=== PATIENT | female | born 1975 | race Caucasian/White ===

== ENCOUNTER 2017-06-24 14:31 | Observation (INO) | payer OTHER ==
[2017-06-24] MEDS ORDERED: Sodium Chloride 0.9% 1,000 ML IV STA (14:57)
[2017-06-24 15:24] LABS: BASO # 0.1 K/uL (0.0-0.2); BASO % 2.1 % (0.0-2.0); EOS # 0.4 K/uL (0.0-0.7); EOS % 8.1 % (0.0-4.0); HEMOGLOBIN 13.3 g/dL (12.0-16.0); LYMPH # 1.9 K/uL (1.0-4.3); LYMPH % 37.5 % (20.0-40.0); MEAN CELL VOLUME 74.3 fl (81.0-99.0); MEAN CORPUSCULAR HEMOGLOBIN 25.3 pg (27.0-31.0); MEAN PLATELET VOLUME 8.7 fl (7.2-11.7); MONO # 0.6 K/uL (0.0-0.8); MONO % 11.7 % (0.0-10.0); NEUT # 2.1 K/uL (1.8-7.0); NEUT % 40.6 % (50.0-75.0); NRBC % 0.2 % (0.0-0.0); RBC 5.25 Mil/uL (3.80-5.20); RED CELL DISTRIBUTION WIDTH 17.6 % (11.5-14.5); WHITE BLOOD COUNT 5.1 K/uL (4.8-10.8)
[2017-06-24 15:34] LABS: ALB/GLOB RATIO 1.3 (1.0-2.1); ALBUMIN 4.6 g/dL (3.5-5.0); ALT/SGPT 33 U/L (9-52); AST/SGOT 23 U/L (14-36); BLOOD UREA NITROGEN 12 mg/dl (7-17); GFR AFRICAN-AMERICAN > 60; GFR NON-AFRICAN AMERICAN > 60; LIPASE 1030 U/L (23-300)
[2017-06-24 15:38] LABS: SQUAMOUS EPITHIAL 8 /hpf (0-5); URINE BACTERIA RARE (<OCC); URINE BILIRUBIN NEGATIVE (NEGATIVE); URINE BLOOD NEGATIVE (NEGATIVE); URINE CLARITY SLIGHTY-CLOUDY (Clear); URINE COLOR YELLOW (YELLOW); URINE GLUCOSE (UA) NEG (Normal); URINE LEUKOCYTE ESTERASE NEG Leu/uL (Negative); URINE PROTEIN NEGATIVE (NEGATIVE); URINE UROBILINOGEN 0.2-1.0 mg/dL (0.2-1.0)
--- NOTE | 2017-06-24 15:41 | ED PDOC ---
HPI: CCC, URI, Sore Throat Time Seen by Provider: 06/24/17 14:39 Chief Complaint (Nursing): Cough, Cold, Congestion Chief Complaint (Provider): Cough, congestion, vomiting History Per: Patient History/Exam Limitations: no limitations Have you had recent travel within the past 21 days to any of the following countries: [place], [place], [place] or [place]?: No Onset/Duration Of Symptoms: Days (x3) Current Symptoms Are (Timing): Still Present Associated Symptoms: Cough, Nasal Congestion, Vomiting. denies: Fever Additional Complaint(s): 42 year old female presented to ED with complaints of nonproductive cough, nasal congestion, and about 5 episodes per day of non bloody vomiting. Patient reports epigastric pain only after vomiting. She denies fever and indicates she has been taking dayquil and nyquil interchangeably. Denied SOB, CP, hemoptysis, hematemesis, sick contacts, previous abdominal surgeries, and recent travel. PCP: Marilin Lewis Past Medical History Reviewed: Historical Data, Nursing Documentation, Vital Signs Vital Signs: Last Vital Signs Temp 98.8 F 06/24/17 22:15 Pulse 64 06/24/17 22:15 Resp 16 06/24/17 22:15 BP 136/71 06/24/17 22:15 Pulse Ox 99 06/24/17 22:15 - Medical History PMH: No Chronic Diseases - Surgical History Surgical History: No Surg Hx - Family History Family History: States: No Known Family Hx - Social History Current smoker - smoking cessation education provided: Yes SMOKER/PACKS PER DAY:: 1 (x 20 years) Alcohol: Occasional Drugs: Denies - Allergies Allergies/Adverse Reactions: Allergies Allergy/AdvReac Type Severity Reaction Status Date / Time No Known Allergies Allergy Verified 10/23/13 19:21 Review of Systems ROS Statement: Except As Marked, All Systems Reviewed And Found Negative Constitutional: Negative for: Fever ENT: Positive for: Nose Congestion Cardiovascular: Negative for: Chest Pain Respiratory: Positive for: Cough (non productive). Negative for: Shortness of Breath, Hemoptysis Gastrointestinal: Positive for: Vomiting (x5 episodes per day). Negative for: Hematemesis Musculoskeletal: Positive for: Other (Epigastric pain after vomiting) Physical Exam - Reviewed Nursing Documentation Reviewed: Yes Vital Signs Reviewed: Yes - Physical Exam Appears: Positive for: Non-toxic, No Acute Distress (actively coughing) Head Exam: Positive for: ATRAUMATIC, NORMAL INSPECTION, NORMOCEPHALIC Skin: Positive for: Normal Color, Warm, Dry Eye Exam: Positive for: Normal appearance, EOMI, PERRL. Negative for: Scleral icterus Cardiovascular/Chest: Positive for: Regular Rate, Rhythm. Negative for: Murmur Respiratory: Positive for: Normal Breath Sounds. Negative for: Wheezing, Respiratory Distress Gastrointestinal/Abdominal: Positive for: Normal Exam, Soft. Negative for: Tenderness Back: Positive for: Normal Inspection. Negative for: L CVA Tenderness, R CVA Tenderness, Vertebral Tenderness Extremity: Positive for: Normal ROM (upper/lower) Neurologic/Psych: Positive for: Alert, Oriented. Negative for: Aphasia, Facial Droop - Laboratory Results Result Diagrams: 06/24/17 15:10 06/24/17 15:10 Urine POC: Negative - ECG O2 Sat by Pulse Oximetry: 99 (RA) Pulse Ox Interpretation: Normal Medical Decision Making Medical Decision Making: Initial Impression: nasal congestion, non productive cough, nonbloody vomiting Initial Plan: ED urine Chest X-ray Famotidine 20mg IV Sodium chloride 1000mL IV Ondansetron 4mg PO Urinalysis 1600 Lipase: 1030 Case d/w Dr. Neely who recommends abd US, LDH level, and GI consult. Pt. kept NPO. LR bolus x 1, abd US, LDH level, ETOH level ordered. Pt. informed of results. Reports no hx of pancreatitis. Pt. states she does not drink alcohol often. Reports that she drinks approximately 2-3 times a year and last time she drank alcohol was in March 2017. 16:14 Chest X-ray Impression: no active diseases 17:55 Ultrasound Impression: cholelithiasis. no sonographic evidence of acute cholecystitis. Intermediate mass right hepatic lobe. Elective followup recommended. 1840 Case d/w Dr. Durant, GI fellow covering for Dr. Ross, who recommends 23 hr observation, CT, and IV LR hydration at 200mls/hr. Also states pt. can be started on clear liquid diet. States since this is pt.'s 1st episode of pancreatitis she has a high likelihood of deterioration therefore she requires [address] abd/pelvis w/ PO and IV contrast, IV LR at 200mls/hr ordered. 1850 Case d/w Dr. Weeks and arrangements made for 23 hr observation. Scribe Attestation: Documented by Charles Dias acting as a scribe for Jaime Woodward Provider Scribe Attestation: All medical record entries made by the Scribe were at my direction and personally dictated by me. I have reviewed the chart and agree that the record accurately reflects my personal performance of the history, physical exam, medical decision making, and the department course for this patient. I have also personally directed, reviewed, and agree with the discharge instructions and disposition. Disposition - Clinical Impression Clinical Impression: Acute pancreatitis - Patient ED Disposition Is Patient to be Admitted: No - Disposition Disposition: Routine/Home Disposition Time: 18:50 Condition: STABLE
[2017-06-24] MEDS ORDERED: Lactated Ringer's 1,000 ML IV SCH (16:00)
--- NOTE | 2017-06-24 16:16 | RAD ---
HISTORY: cough COMPARISON: No prior. TECHNIQUE: Chest PA and lateral FINDINGS: LUNGS: No active pulmonary disease. PLEURA: No significant pleural effusion identified. No pneumothorax apparent. CARDIOVASCULAR: Normal. OSSEOUS STRUCTURES: No significant abnormalities. VISUALIZED UPPER ABDOMEN: Normal. OTHER FINDINGS: None. IMPRESSION: No active disease.
--- NOTE | 2017-06-24 17:56 | US ---
HISTORY: vomiting, epigastric pain, lipase 1030 COMPARISON: None. TECHNIQUE: Sonographic evaluation of the abdomen. FINDINGS: LIVER: Measures 16.6 cm. Patent portal vein. Portal venous flow: Hepatopetal. Unremarkable echogenicity of the liver parenchyma. Angela hepatis mass 1.5 x 1.8 x 2.1 cm. Elective followup recommended. GALLBLADDER: Cholelithiasis. Solitary large gallstone 2.3 cm. Negative study for gallbladder wall thickening, pericholecystic fluid, sonographic Allan's sign. COMMON BILE DUCT: Measures 4.2 mm. No stones. No dilatation. PANCREAS: Unremarkable as visualized. No mass. No ductal dilatation. RIGHT KIDNEY: Measures 5 x 11.7cm. Normal echogenicity. No calculus, mass, or hydronephrosis. LEFT KIDNEY: Measures 4.9 x 11.6cm. Normal echogenicity. No calculus, mass, or hydronephrosis. Incidental finding(s): Echogenic focus 6 mm midpole region without shadowing. SPLEEN: Normal in size and contour. No mass. AORTA: No aneurysmal dilatation. IVC: Unremarkable. OTHER FINDINGS: None. IMPRESSION: Cholelithiasis. No sonographic evidence of acute cholecystitis. Indeterminate mass right hepatic lobe. Elective followup recommended.
[2017-06-24] MEDS ORDERED: Iohexol 240 (50 ml) PO ONE (18:52)
[2017-06-24] MEDS ORDERED: Iohexol 240 (50 ml) ONE (18:55)
[2017-06-24] MEDS: Lactated Ringer's 1,000 ML IV SCH ×2 (19:25→23:45)
[2017-06-24] MEDS ORDERED: Iohexol 300 100 ML IJ ONE (20:16)
[2017-06-24] MEDS ORDERED: Sodium Chloride 0.9% 100 ML ONE (20:16)
--- NOTE | 2017-06-24 21:56 | CT ---
EXAM: CT Abdomen and Pelvis With Intravenous Contrast EXAM DATE/TIME: 06/24/2017 6:52 PM CLINICAL HISTORY: 42 years old, female; Signs and symptoms; Nausea and vomiting and other: Elevated lipase; Additional info: Elevated lipase; Vomiting; Abd pain TECHNIQUE: Axial computed tomography images of the abdomen and pelvis with intravenous contrast. All CT scans at this facility use one or more dose reduction techniques, viz.: automated exposure control; ma/kV adjustment per patient size (including targeted exams where dose is matched to indication; i.e. head); or iterative reconstruction technique. Coronal and sagittal reformatted images were created and reviewed. CONTRAST: 90 mL of [id number] administered intravenously. COMPARISON: No relevant prior studies available. FINDINGS: LUNG BASES: No significant abnormality seen. ABDOMEN: LIVER: 2 cm low density lesion in the liver, which does not appear to represent a cyst. This is indeterminate in nature. This lesion could be further evaluated with followup liver protocol MRI, as clinically indicated, on a nonemergent basis. Area of low density in the liver, abutting the falciform ligament, most compatible with focal fatty infiltration. No evidence of diffuse liver lesions. GALLBLADDER AND BILE DUCTS: Large 1.8 cm radiolucent gallstone. No CT evidence of acute cholecystitis. No evidence of significant biliary ductal dilatation. PANCREAS: No CT evidence of acute pancreatitis. SPLEEN: No acute abnormality of the spleen identified. ADRENALS: 2.3 cm left adrenal lesion. This has features suggestive of a benign lesion, but it is indeterminate on this exam. Recommend follow-up abdominal CT or MR in 12 months. Alternatively, if there is a history of malignancy, consider further evaluation with PET, unenhanced abdominal CT or MR. KIDNEYS AND URETERS: Low density lesions in the kidneys bilaterally, most likely representing bilateral renal cysts. One is seen in each kidney, the larger, on the right, measuring 1.2 cm Tiny, nonobstructing left renal stone. No evidence of hydroureteronephrosis. STOMACH AND BOWEL: No acute abnormality of the stomach, small bowel or colon identified. No evidence of bowel obstruction. PELVIS: APPENDIX: Appendix is seen, and is within normal limits in appearance. BLADDER: Mild thickening of the bladder wall. REPRODUCTIVE: 1.8 cm lesion with a thin, enhancing and collapsed soft tissue rim in the left ovary. This has an appearance suggestive of a recently ruptured/involuting ovarian cyst, such as a corpus luteal cyst. Followup pelvic ultrasound as clinically indicated. No acute abnormality of the uterus identified. No evidence of large adnexal masses. ABDOMEN and PELVIS: INTRAPERITONEAL SPACE: No evidence of free intraperitoneal air or fluid. BONES/JOINTS: No acute fractures or other acute bony abnormality noted. SOFT TISSUES: No acute abnormality of the visualized soft tissues is seen. VASCULATURE: No evidence of abdominal aortic aneurysm. No evidence of periaortic hemorrhage. LYMPH NODES: No evidence of diffuse lymphadenopathy. IMPRESSION: - Mild bladder wall thickening. This is a nonspecific finding, but can be seen with cystitis. Recommend clinical correlation. - Otherwise, no evidence of significant acute process. - Incidental adrenal lesion. See recommendations above. - Incidental indeterminate liver lesion. See above. - See above for remaining findings.
[2017-06-25] MEDS: Lactated Ringer's 1,000 ML IV SCH ×6 (02:23→22:12)
[2017-06-25 06:44] LABS: ALB/GLOB RATIO 1.2 (1.0-2.1); ALBUMIN 3.5 g/dL (3.5-5.0); ALT/SGPT 28 U/L (9-52); AMYLASE 128 U/L (30-110); AST/SGOT 16 U/L (14-36); BLOOD UREA NITROGEN 5 mg/dl (7-17); CALCIUM 8.7 mg/dL (8.4-10.2); GFR AFRICAN-AMERICAN > 60; GFR NON-AFRICAN AMERICAN > 60; HDL CHOLESTEROL 45 MG/DL (30-70); LIPASE 267 U/L (23-300)
[2017-06-25 06:49] LABS: HEMOGLOBIN 11.9 g/dL (12.0-16.0); LDL CHOLESTEROL 87 mg/dL (0-129); MEAN CELL VOLUME 74.3 fl (81.0-99.0); MEAN CORPUSCULAR HEMOGLOBIN 24.9 pg (27.0-31.0); MEAN CORPUSCULAR HGB CONC 33.6 g/dL (33.0-37.0); RBC 4.76 Mil/uL (3.80-5.20); RED CELL DISTRIBUTION WIDTH 17.2 % (11.5-14.5); WHITE BLOOD COUNT 4.1 K/uL (4.8-10.8)
[2017-06-25 06:51] LABS: T4 8.09 ug/dl (5.5-11.0)
[2017-06-25 07:05] LABS: T3 1.05 nmol/L (1.49-2.60)
[2017-06-25] MEDS: Enoxaparin 40 mg Syringe SC SCH (08:52)
--- NOTE | 2017-06-25 08:52 | CP.PCM.HP ---
History of Present Illness - History of Present Illness History of Present Illness: 42 yo , f, no significant PMhx presents c/o epigastric abdominal pain started 3 days ago, intermittent, associated with non bloddy vomiting 5-6/day , getting worse, unable to tolerate regular food. Denies fever, chest pain, sOB, dysuria, abd trauma, hxo pancreatitis, odd food ingestion, ETOH abuse. Patient seen and examined bedside with Dr Weeks. Patient NPO, reports abd pain is getting better with meds. Present on Admission - Present on Admission Any Indicators Present on Admission: No History of DVT/PE: No History of Uncontrolled Diabetes: No Urinary Catheter: No Decubitus Ulcer Present: No Review of Systems - Review of Systems All systems: reviewed and no additional remarkable complaints except - Gastrointestinal Gastrointestinal: Abdominal Pain, Nausea, Vomiting Past Patient History - Past Medical History & Family History Past Medical History?: Yes - Past Social History Alcohol: Occasional Drugs: Denies - CARDIAC Hx Cardiac Disorders: No - PULMONARY Hx Respiratory Disorders: No - NEUROLOGICAL Hx Neurological Disorder: No - HEENT Hx Sinusitis: Yes Other/Comment: Use Eyeglasses - RENAL Hx Chronic Kidney Disease: No - ENDOCRINE/METABOLIC Hx Endocrine Disorders: No - HEMATOLOGICAL/ONCOLOGICAL Hx Blood Disorders: No - INTEGUMENTARY Hx Dermatological Problems: No - MUSCULOSKELETAL/RHEUMATOLOGICAL Hx Musculoskeletal Disorders: No Hx Falls: No - GASTROINTESTINAL Hx Gastrointestinal Disorders: No - GENITOURINARY/GYNECOLOGICAL Hx Genitourinary Disorders: No - PSYCHIATRIC Hx Psychophysiologic Disorder: No Hx Substance Use: No - SURGICAL HISTORY Hx Surgeries: No - ANESTHESIA Hx Anesthesia: No Hx Anesthesia Reactions: No Hx Malignant Hyperthermia: No Has any member of the family had a problem w/ anesthesia?: No Meds Allergies/Adverse Reactions: Allergies Allergy/AdvReac Type Severity Reaction Status Date / Time No Known Allergies Allergy Verified 10/23/13 19:21 Physical Exam - Constitutional Appears: Non-toxic, No Acute Distress - Head Exam Head Exam: ATRAUMATIC, NORMOCEPHALIC - Eye Exam Eye Exam: Normal appearance - ENT Exam ENT Exam: Mucous Membranes Moist - Respiratory Exam Respiratory Exam: Clear to Auscultation Bilateral. absent: Rales, Rhonchi, Wheezes - Cardiovascular Exam Cardiovascular Exam: REGULAR RHYTHM, +S1, +S2 - GI/Abdominal Exam GI & Abdominal Exam: Normal Bowel Sounds, Soft. absent: Guarding - Extremities Exam Extremities exam: Positive for: normal inspection. Negative for: pedal edema - Neurological Exam Neurological exam: Alert, Oriented x3 - Psychiatric Exam Psychiatric exam: Normal Affect, Normal Mood - Skin Skin Exam: Intact Results - Vital Signs Recent Vital Signs: Last Vital Signs Temp 98.3 F 06/25/17 08:13 Pulse 77 06/25/17 08:13 Resp 20 06/25/17 08:13 BP 135/79 06/25/17 08:13 Pulse Ox 97 06/25/17 08:13 - Labs Result Diagrams: 06/25/17 05:45 06/25/17 05:45 Labs: Laboratory Results - last 24 hr 06/24/17 06/24/17 06/24/17 15:10 15:10 15:10 WBC 5.1 RBC 5.25 H Hgb 13.3 Hct 39.0 MCV 74.3 L MCH 25.3 L MCHC 34.0 RDW 17.6 H Plt Count 301 MPV 8.7 Neut % (Auto) 40.6 L Lymph % (Auto) 37.5 [place] % (Auto) 11.7 H Eos % (Auto) 8.1 H Baso % (Auto) 2.1 H Neut # (Auto) 2.1 Lymph # (Auto) 1.9 [place] # (Auto) 0.6 Eos # (Auto) 0.4 Baso # (Auto) 0.1 Sodium 141 Potassium 3.5 L Chloride 101 Carbon Dioxide 25 Anion Gap 19 BUN 12 Creatinine 0.7 Est GFR ( Amer) > 60 Est GFR (Non-Af Amer) > 60 Random Glucose 94 Calcium 9.0 Total Bilirubin 0.5 AST 23 ALT 33 Alkaline Phosphatase 94 Lactate Dehydrogenase Total Protein 8.0 Albumin 4.6 Globulin 3.4 Albumin/Globulin Ratio 1.3 Triglycerides Cholesterol LDL Cholesterol Direct HDL Cholesterol Amylase Lipase 1030 H Vitamin B12 Thyroxine (T4) Total T3 Urine Color Yellow Urine Clarity Slighty-cloudy Urine pH 6.0 Ur Specific [place] 1.012 Urine Protein Negative Urine Glucose (UA) Neg Urine Ketones Negative Urine Blood Negative Urine Nitrate Negative Urine Bilirubin Negative Urine Urobilinogen 0.2-1.0 Ur Leukocyte Esterase Neg Urine RBC (Auto) 4 H Urine Microscopic WBC 2 Ur Squamous Epith Cells 8 H Urine Bacteria Rare Alcohol, Quantitative 05/17/18 05/18/18 05/18/18 16:08 05:45 05:45 WBC 4.1 L RBC 4.76 Hgb 11.9 L Hct 35.3 MCV 74.3 L MCH 24.9 L MCHC 33.6 RDW 17.2 H Plt Count 250 MPV Neut % (Auto) Lymph % (Auto) [place] % (Auto) Eos % (Auto) Baso % (Auto) Neut # (Auto) Lymph # (Auto) [place] # (Auto) Eos # (Auto) Baso # (Auto) Sodium 140 Potassium 3.6 Chloride 104 Carbon Dioxide 24 Anion Gap 16 BUN 5 L Creatinine 0.6 L Est GFR ( Amer) > 60 Est GFR (Non-Af Amer) > 60 Random Glucose 102 Calcium 8.7 Total Bilirubin 0.7 AST 16 ALT 28 Alkaline Phosphatase 73 Lactate Dehydrogenase 517 Total Protein 6.4 Albumin 3.5 D Globulin 2.9 Albumin/Globulin Ratio 1.2 Triglycerides 87 Cholesterol 151 LDL Cholesterol Direct 87 HDL Cholesterol 45 Amylase 128 H Lipase 267 Vitamin B12 376 Thyroxine (T4) 8.09 Total T3 1.05 L Urine Color Urine Clarity Urine pH Ur Specific [place] Urine Protein Urine Glucose (UA) Urine Ketones Urine Blood Urine Nitrate Urine Bilirubin Urine Urobilinogen Ur Leukocyte Esterase Urine RBC (Auto) Urine Microscopic WBC Ur Squamous Epith Cells Urine Bacteria Alcohol, Quantitative < 10 Assessment & Plan - Assessment and Plan (Free Text) Plan: Assessmen/Plan 1) Acute Pancreatitis secondary to cholelithiasis lipase 1030 -Ct Abd: cholelithiasis. a 2cm liver lesion -GI Consult appreciated: recommends triple fase liver scan. 2) DVT Prophylaxis Lovenox 40 mg sc daily
--- NOTE | 2017-06-25 09:42 | CP.PCM.CON ---
<Rashad Junior - Last Filed: 06/25/17 11:55> History of Present Illness - History of Present Illness History of Present Illness: PGY5 GI Fellow Consult Note Patient is a 42yo female with no significant PMhx who presented to the hospital with abdominal pain, nasal congestion and productive cough. The patient states that Wednesday she suddenly developed epigastric abdominal pain. Pain has been intermittent since but worsened over the past 48 hours. She tried eating pork chops, macaroni & cheese and fried chicken but vomited after all meals. She has never had pain like this previously and did not use any medications to treat her symptoms. As symptoms persisted, she came to the ED for further evaluation. On blood work, her lipase was significantly elevated and U/S and CT show a large 2cm gallstone within the gallbladder as well as a 2cm liver lesion. She denies recent EtOH use and has normal triglycerides. Tolerating liquid diet at this time. Denies fever, chills, change in bowel habits, weight loss. 12 system ROS performed and negative except where stated PMHx: See HPI PSHx: Discussed with patient and denies prior surgical history FHx: Discussed with patient and denies prior family history Social: Denies EtOH, illicit drug use; +1ppd smoker Endo: No prior endoscopic evaluations Past Patient History - Past Medical History & Family History Past Medical History?: Yes - Past Social History Alcohol: Occasional Drugs: Denies - CARDIAC Hx Cardiac Disorders: No - PULMONARY Hx Respiratory Disorders: No - NEUROLOGICAL Hx Neurological Disorder: No - HEENT Hx Sinusitis: Yes Other/Comment: Use Eyeglasses - RENAL Hx Chronic Kidney Disease: No - ENDOCRINE/METABOLIC Hx Endocrine Disorders: No - HEMATOLOGICAL/ONCOLOGICAL Hx Blood Disorders: No - INTEGUMENTARY Hx Dermatological Problems: No - MUSCULOSKELETAL/RHEUMATOLOGICAL Hx Musculoskeletal Disorders: No Hx Falls: No - GASTROINTESTINAL Hx Gastrointestinal Disorders: No - GENITOURINARY/GYNECOLOGICAL Hx Genitourinary Disorders: No - PSYCHIATRIC Hx Psychophysiologic Disorder: No Hx Substance Use: No - SURGICAL HISTORY Hx Surgeries: No - ANESTHESIA Hx Anesthesia: No Hx Anesthesia Reactions: No Hx Malignant Hyperthermia: No Has any member of the family had a problem w/ anesthesia?: No Meds Allergies/Adverse Reactions: Allergies Allergy/AdvReac Type Severity Reaction Status Date / Time No Known Allergies Allergy Verified 10/23/13 19:21 - Medications Medications: Current Medications Enoxaparin Sodium (Lovenox) 40 mg SC DAILY [facility] PRN Reason: Protocol Last Admin: 06/25/17 08:52 Dose: 40 mg Lactated Ringer's (Lactated Ringer's) 1,000 mls @ 200 mls/hr IV .Q5H [facility] Last Admin: 06/25/17 08:38 Dose: 200 mls/hr Ketorolac Tromethamine (Toradol) 10 mg PO Q6 PRN PRN Reason: Pain, moderate (4-7) Physical Exam - Constitutional Appears: Non-toxic, No Acute Distress - Eye Exam Eye Exam: EOMI, PERRL - ENT Exam ENT Exam: Mucous Membranes Moist - Respiratory Exam Respiratory Exam: Clear to Auscultation Bilateral. absent: Rales, Rhonchi, Wheezes - Cardiovascular Exam Cardiovascular Exam: RRR, +S1, +S2 - GI/Abdominal Exam GI & Abdominal Exam: Normal Bowel Sounds, Soft, Tenderness (epigastric). absent : Distended, Firm, Guarding, Organomegaly, Rigid - Extremities Exam Extremities exam: Positive for: normal inspection. Negative for: pedal edema - Neurological Exam Neurological exam: Alert, Oriented x3 - Psychiatric Exam Psychiatric exam: Normal Affect, Normal Mood - Skin Skin Exam: Dry, Warm Results - Vital Signs Recent Vital Signs: Last Vital Signs Temp 98.3 F 06/25/17 08:13 Pulse 77 06/25/17 08:13 Resp 20 06/25/17 08:13 BP 135/79 06/25/17 08:13 Pulse Ox 97 06/25/17 08:13 - Labs Result Diagrams: 06/25/17 05:45 06/25/17 05:45 Labs: Laboratory Results - last 24 hr 06/24/17 06/24/17 06/24/17 15:10 15:10 15:10 WBC 5.1 RBC 5.25 H Hgb 13.3 Hct 39.0 MCV 74.3 L MCH 25.3 L MCHC 34.0 RDW 17.6 H Plt Count 301 MPV 8.7 Neut % (Auto) 40.6 L Lymph % (Auto) 37.5 [place] % (Auto) 11.7 H Eos % (Auto) 8.1 H Baso % (Auto) 2.1 H Neut # (Auto) 2.1 Lymph # (Auto) 1.9 [place] # (Auto) 0.6 Eos # (Auto) 0.4 Baso # (Auto) 0.1 Sodium 141 Potassium 3.5 L Chloride 101 Carbon Dioxide 25 Anion Gap 19 BUN 12 Creatinine 0.7 Est GFR ( Amer) > 60 Est GFR (Non-Af Amer) > 60 Random Glucose 94 Calcium 9.0 Total Bilirubin 0.5 AST 23 ALT 33 Alkaline Phosphatase 94 Lactate Dehydrogenase Total Protein 8.0 Albumin 4.6 Globulin 3.4 Albumin/Globulin Ratio 1.3 Triglycerides Cholesterol LDL Cholesterol Direct HDL Cholesterol Amylase Lipase 1030 H Vitamin B12 Thyroxine (T4) Total T3 Urine Color Yellow Urine Clarity Slighty-cloudy Urine pH 6.0 Ur Specific [place] 1.012 Urine Protein Negative Urine Glucose (UA) Neg Urine Ketones Negative Urine Blood Negative Urine Nitrate Negative Urine Bilirubin Negative Urine Urobilinogen 0.2-1.0 Ur Leukocyte Esterase Neg Urine RBC (Auto) 4 H Urine Microscopic WBC 2 Ur Squamous Epith Cells 8 H Urine Bacteria Rare Alcohol, Quantitative 06/24/17 06/25/17 06/25/17 16:08 05:45 05:45 WBC 4.1 L RBC 4.76 Hgb 11.9 L Hct 35.3 MCV 74.3 L MCH 24.9 L MCHC 33.6 RDW 17.2 H Plt Count 250 MPV Neut % (Auto) Lymph % (Auto) [place] % (Auto) Eos % (Auto) Baso % (Auto) Neut # (Auto) Lymph # (Auto) [place] # (Auto) Eos # (Auto) Baso # (Auto) Sodium 140 Potassium 3.6 Chloride 104 Carbon Dioxide 24 Anion Gap 16 BUN 5 L Creatinine 0.6 L Est GFR ( Amer) > 60 Est GFR (Non-Af Amer) > 60 Random Glucose 102 Calcium 8.7 Total Bilirubin 0.7 AST 16 ALT 28 Alkaline Phosphatase 73 Lactate Dehydrogenase 517 Total Protein 6.4 Albumin 3.5 D Globulin 2.9 Albumin/Globulin Ratio 1.2 Triglycerides 87 Cholesterol 151 LDL Cholesterol Direct 87 HDL Cholesterol 45 Amylase 128 H Lipase 267 Vitamin B12 376 Thyroxine (T4) 8.09 Total T3 1.05 L Urine Color Urine Clarity Urine pH Ur Specific [place] Urine Protein Urine Glucose (UA) Urine Ketones Urine Blood Urine Nitrate Urine Bilirubin Urine Urobilinogen Ur Leukocyte Esterase Urine RBC (Auto) Urine Microscopic WBC Ur Squamous Epith Cells Urine Bacteria Alcohol, Quantitative < 10 Assessment & Plan - Assessment and Plan (Free Text) Assessment: Patient is a 42yo female with no significant PMHx who presented to the hospital with abdominal pain, nasal congestion and productive cough. -Pancreatitis, suspect gallstone pancreatitis -Gallstones -Liver lesion noted on CT scan -URI Plan: -Continue LR@200cc/hr, OK to D/C once tolerating PO without issue -Liquid diet now; advance to low fat diet as tolerated -Outpatient elective evaluation by general surgery for cholecystectomy -Liver lesion warrants follow up with triple phase CT scan prior to D/C -If tolerating PO and no pain noted, OK to D/C from GI standpoint after CT scan - Date & Time Date: 06/25/17 Time: 08:00 <Flavio Ross - Last Filed: 06/25/17 14:15> Meds - Medications Medications: Current Medications Enoxaparin Sodium (Lovenox) 40 mg SC DAILY [facility] PRN Reason: Protocol Last Admin: 06/25/17 08:52 Dose: 40 mg Lactated Ringer's (Lactated Ringer's) 1,000 mls @ 200 mls/hr IV .Q5H [facility] Last Admin: 06/25/17 08:38 Dose: 200 mls/hr Ketorolac Tromethamine (Toradol) 10 mg PO Q6 PRN PRN Reason: Pain, moderate (4-7) Results - Vital Signs Recent Vital Signs: Last Vital Signs Temp 98.3 F 06/25/17 08:13 Pulse 77 06/25/17 08:13 Resp 20 06/25/17 08:13 BP 135/79 06/25/17 08:13 Pulse Ox 97 06/25/17 08:13 - Labs Result Diagrams: 06/25/17 05:45 06/25/17 05:45 Labs: Laboratory Results - last 24 hr 06/24/17 06/24/17 06/24/17 15:10 15:10 15:10 WBC 5.1 RBC 5.25 H Hgb 13.3 Hct 39.0 MCV 74.3 L MCH 25.3 L MCHC 34.0 RDW 17.6 H Plt Count 301 MPV 8.7 Neut % (Auto) 40.6 L Lymph % (Auto) 37.5 [place] % (Auto) 11.7 H Eos % (Auto) 8.1 H Baso % (Auto) 2.1 H Neut # (Auto) 2.1 Lymph # (Auto) 1.9 [place] # (Auto) 0.6 Eos # (Auto) 0.4 Baso # (Auto) 0.1 Sodium 141 Potassium 3.5 L Chloride 101 Carbon Dioxide 25 Anion Gap 19 BUN 12 Creatinine 0.7 Est GFR ( Amer) > 60 Est GFR (Non-Af Amer) > 60 Random Glucose 94 Calcium 9.0 Total Bilirubin 0.5 AST 23 ALT 33 Alkaline Phosphatase 94 Lactate Dehydrogenase Total Protein 8.0 Albumin 4.6 Globulin 3.4 Albumin/Globulin Ratio 1.3 Triglycerides Cholesterol LDL Cholesterol Direct HDL Cholesterol Amylase Lipase 1030 H Vitamin B12 Thyroxine (T4) Total T3 Urine Color Yellow Urine Clarity Slighty-cloudy Urine pH 6.0 Ur Specific [place] 1.012 Urine Protein Negative Urine Glucose (UA) Neg Urine Ketones Negative Urine Blood Negative Urine Nitrate Negative Urine Bilirubin Negative Urine Urobilinogen 0.2-1.0 Ur Leukocyte Esterase Neg Urine RBC (Auto) 4 H Urine Microscopic WBC 2 Ur Squamous Epith Cells 8 H Urine Bacteria Rare Urine HCG, Qual Alcohol, Quantitative 06/24/17 06/25/17 06/25/17 16:08 05:45 05:45 WBC 4.1 L RBC 4.76 Hgb 11.9 L Hct 35.3 MCV 74.3 L MCH 24.9 L MCHC 33.6 RDW 17.2 H Plt Count 250 MPV Neut % (Auto) Lymph % (Auto) [place] % (Auto) Eos % (Auto) Baso % (Auto) Neut # (Auto) Lymph # (Auto) [place] # (Auto) Eos # (Auto) Baso # (Auto) Sodium 140 Potassium 3.6 Chloride 104 Carbon Dioxide 24 Anion Gap 16 BUN 5 L Creatinine 0.6 L Est GFR ( Amer) > 60 Est GFR (Non-Af Amer) > 60 Random Glucose 102 Calcium 8.7 Total Bilirubin 0.7 AST 16 ALT 28 Alkaline Phosphatase 73 Lactate Dehydrogenase 517 Total Protein 6.4 Albumin 3.5 D Globulin 2.9 Albumin/Globulin Ratio 1.2 Triglycerides 87 Cholesterol 151 LDL Cholesterol Direct 87 HDL Cholesterol 45 Amylase 128 H Lipase 267 Vitamin B12 376 Thyroxine (T4) 8.09 Total T3 1.05 L Urine Color Urine Clarity Urine pH Ur Specific [place] Urine Protein Urine Glucose (UA) Urine Ketones Urine Blood Urine Nitrate Urine Bilirubin Urine Urobilinogen Ur Leukocyte Esterase Urine RBC (Auto) Urine Microscopic WBC Ur Squamous Epith Cells Urine Bacteria Urine HCG, Qual Alcohol, Quantitative < 10 06/25/17 Unknown WBC RBC Hgb Hct MCV MCH MCHC RDW Plt Count MPV Neut % (Auto) Lymph % (Auto) [place] % (Auto) Eos % (Auto) Baso % (Auto) Neut # (Auto) Lymph # (Auto) [place] # (Auto) Eos # (Auto) Baso # (Auto) Sodium Potassium Chloride Carbon Dioxide Anion Gap BUN Creatinine Est GFR ( Amer) Est GFR (Non-Af Amer) Random Glucose Calcium Total Bilirubin AST ALT Alkaline Phosphatase Lactate Dehydrogenase Total Protein Albumin Globulin Albumin/Globulin Ratio Triglycerides Cholesterol LDL Cholesterol Direct HDL Cholesterol Amylase Lipase Vitamin B12 Thyroxine (T4) Total T3 Urine Color Urine Clarity Urine pH Ur Specific [place] Urine Protein Urine Glucose (UA) Urine Ketones Urine Blood Urine Nitrate Urine Bilirubin Urine Urobilinogen Ur Leukocyte Esterase Urine RBC (Auto) Urine Microscopic WBC Ur Squamous Epith Cells Urine Bacteria Urine HCG, Qual Negative Alcohol, Quantitative Attending/Attestation - Attestation I have personally seen and examined this patient.: Yes I have fully participated in the care of the patient.: Yes I have reviewed all pertinent clinical information: Yes Notes (Text): 06/25/17 14:14 This is a 42 yo female with no significant PMHx who presented to the hospital with abdominal pain, nasal congestion and productive cough found to have gallstone pancreatitis, and liver lesion noted on CT scan. Will order CT triple phase and advance diet as tolerated
[2017-06-26] MEDS: Lactated Ringer's 1,000 ML IV SCH ×4 (01:00→15:23)
[2017-06-26] MEDS: Enoxaparin 40 mg Syringe SC SCH (08:41)
--- NOTE | 2017-06-26 09:40 | PN ---
DATE: 06/26/2017 SUBJECTIVE: The patient is seen and examined. Interim events noted. Consults noted and appreciated. Case discussed with municipal maintenance worker yesterday. The patient remains in regular medical floor. The patient feels much better. Abdominal pain improved. Tolerated liquid and solid food without any problems. No chest pain, no shortness of breath. PHYSICAL EXAMINATION: GENERAL: The patient is in no acute distress. VITAL SIGNS: Stable. HEART: S1 and S2, normal and regular. LUNGS: Good bilateral air exchange. ABDOMEN: Soft and nontender. No organomegaly. No fluid. Bowel sounds are plus and normal. No sign of acute abdomen. No guarding. No rigidity. No rebound. EXTREMITIES: No edema. No calf swelling. No tenderness. No acute ischemia. CENTRAL NERVOUS SYSTEM: Essentially unchanged. DIAGNOSTIC DATA: Available diagnostic data reviewed. PLAN: Overall, the patient's general medical condition is stable and slowly improving. Plan as ordered. Dony Weeks MD
[2017-06-26] MEDS ORDERED: Sodium Chloride 0.9% 100 ML ONE (09:54)
[2017-06-26] MEDS ORDERED: Iohexol 300 100 ML IJ ONE (09:54)
--- NOTE | 2017-06-26 11:24 | CT ---
PROCEDURE: CT Abdomen and Pelvis with and without intravenous contrast HISTORY: better characterize liver lesion COMPARISON: None. TECHNIQUE: Axial images of the abdomen were obtained in the pre contrast, hepatic arterial and portal venous phases of enhancement. Coronal and sagittal reformats were generated. Contrast dose: 95 cc Omnipaque 300 Radiation dose: Total exam DLP = 1850.45 mGy-cm. This CT exam was performed using one or more of the following dose reduction techniques: Automated exposure control, adjustment of the mA and/or kV according to patient size, and/or use of iterative reconstruction technique. FINDINGS: LOWER THORAX: Unremarkable. LIVER: Normal size, contour and attenuation. There is a nonspecific low-attenuation lesion in the medial segment left hepatic lobe anterior to the inferior vena cava, measuring 2.1 x 2.6 x 1.6 cm. This corresponds to a hypoechoic lesion identified on ultrasound examination of 06/24/2017. This lesion is not evident on noncontrast for hepatic arterial phase images. There is no other hepatic mass identified. There is no biliary dilatation. GALLBLADDER AND BILE DUCTS: Noncalcified gallstones. No mural thickening. PANCREAS: Unremarkable. No gross lesion or ductal dilatation. SPLEEN: Unremarkable. ADRENALS: 2.2 cm rounded left adrenal mass measuring approximately -4 Hounsfield units on noncontrast images, indicating lipid content. This is consistent with an adrenal adenoma. No further imaging is advised. Unremarkable right adrenal. KIDNEYS AND URETERS: 2 mm nonobstructing left upper pole renal calculus. No right renal calculus. 1.4 cm right upper pole rounded low-attenuation mass and 1.2 cm mid left renal low-attenuation rounded mass. Likely cortical cysts. However, these were not identified on recent abdominal ultrasound examination of 06/24/2017. No hydronephrosis. VASCULATURE: Unremarkable. No aortic aneurysm. BOWEL: Unremarkable. No obstruction. No gross mural thickening. APPENDIX: Normal appendix. PERITONEUM: Unremarkable. No free fluid. No free air. LYMPH NODES: Unremarkable. No enlarged lymph nodes. BLADDER: Nondistended REPRODUCTIVE: Normal uterus. Irregularly-shaped peripherally enhancing 1.8 cm left ovarian structure, likely ruptured or involuting left ovarian cyst. BONES: No acute fracture. OTHER FINDINGS: None. IMPRESSION: Nonspecific low-density 2.1 cm mass in the medial left hepatic lobe. This does not have findings consistent with a hemangioma. Followup with ultrasound examination is advised to assess for interval stability. Left adrenal adenoma. Tiny nonobstructing right renal calculus. Probable ruptured or involuting left ovarian cyst. Cholelithiasis.
--- NOTE | 2017-06-26 14:11 | CP.PCM.PN ---
<Anastacia Durant - Last Filed: 06/26/17 14:12> Subjective - Date & Time of Evaluation Date of Evaluation: 06/26/17 Time of Evaluation: 09:00 - Subjective Subjective: PGY4 GI Follow-up Pt seen and examined bedside Denies any abd pain states that her pain has resolved tolerated low fat diet + BM ROS: 12 point ROS conducted neg other than above Objective - Vital Signs/Intake and Output Vital Signs (last 24 hours): Temp Pulse Resp BP Pulse Ox 98.3 F 70 18 129/78 99 06/26/17 07:53 06/26/17 07:53 06/26/17 07:53 06/26/17 07:53 06/26/17 07:53 - Medications Medications: Current Medications Enoxaparin Sodium (Lovenox) 40 mg SC DAILY [facility] PRN Reason: Protocol Last Admin: 06/26/17 08:41 Dose: 40 mg Lactated Ringer's (Lactated Ringer's) 1,000 mls @ 200 mls/hr IV .Q5H [facility] Last Admin: 06/26/17 06:36 Dose: Not Given Ketorolac Tromethamine (Toradol) 10 mg PO Q6 PRN PRN Reason: Pain, moderate (4-7) - Labs Labs: 06/25/17 05:45 06/25/17 05:45 - Constitutional Appears: Well, No Acute Distress - Head Exam Head Exam: ATRAUMATIC, NORMOCEPHALIC - Eye Exam Eye Exam: Normal appearance - ENT Exam ENT Exam: Mucous Membranes Moist, Normal Exam - Neck Exam Neck Exam: Normal Inspection - Respiratory Exam Respiratory Exam: Clear to Ausculation Bilateral, NORMAL BREATHING PATTERN. absent: Rales, Wheezes, Respiratory Distress - Cardiovascular Exam Cardiovascular Exam: REGULAR RHYTHM, +S1, +S2 - GI/Abdominal Exam GI & Abdominal Exam: Soft, Normal Bowel Sounds. absent: Distended, Firm, Guarding, Rigid, Tenderness, Organomegaly - Extremities Exam Extremities Exam: absent: Joint Swelling, Pedal Edema - Neurological Exam Neurological Exam: Alert, Awake, Oriented x3 - Psychiatric Exam Psychiatric exam: Normal Affect, Normal Mood - Skin Skin Exam: Dry, Intact, Normal Color, Warm Assessment and Plan - Assessment and Plan (Free Text) Assessment: Patient is a 42yo female with no significant PMHx who presented to the hospital with abdominal pain, nasal congestion and productive cough. -Pancreatitis, suspect gallstone pancreatitis -Gallstones -Liver lesion noted on CT scan -URI Plan: -Continue LR@200cc/hr, -advance diet s tolerated -will eventually need lap guera -Liver CT non-specefic, hepatic simple cyst?, will need follow-up U/S in 6 months -will sign off D/W Dr. Li <Harlan Li - Last Filed: 06/26/17 18:39> Objective - Vital Signs/Intake and Output Vital Signs (last 24 hours): Temp Pulse Resp BP Pulse Ox 97.5 F L 62 20 138/84 98 06/26/17 16:09 06/26/17 16:09 06/26/17 16:09 06/26/17 16:09 06/26/17 16:09 - Medications Medications: Current Medications Enoxaparin Sodium (Lovenox) 40 mg SC DAILY [facility] PRN Reason: Protocol Last Admin: 06/26/17 08:41 Dose: 40 mg Lactated Ringer's (Lactated Ringer's) 1,000 mls @ 200 mls/hr IV .Q5H [facility] Last Admin: 06/26/17 15:23 Dose: 200 mls/hr Ketorolac Tromethamine (Toradol) 10 mg PO Q6 PRN PRN Reason: Pain, moderate (4-7) - Labs Labs: 06/25/17 05:45 06/25/17 05:45 Attending/Attestation - Attestation I have personally seen and examined this patient.: Yes I have fully participated in the care of the patient.: Yes I have reviewed all pertinent clinical information, including history, physical exam and plan: Yes Notes (Text): 06/26/17 18:38 42 F with gallstone pancreatitis. Recommend cholecystectomy. Pancreatitis resolved. Liver lesion awaiting CT .
[2017-06-26 16:09] VITALS: BP 138/84; PULSE 62; RESP 20; TEMP 97.5; O2SAT 98
== END 2017-06-26 19:18 | disposition home or self-care (01) ==
LOC: H.ER 14:31 → H.ERHOLD 18:54 → H.MEDSURG1 22:21
PROVIDERS: ADMIT Internal Medicine; ATTEND Internal Medicine
DX: K85.10 Biliary acute pancreatitis without necrosis or infection (principal); K76.9 Liver disease, unspecified; F17.200 Nicotine dependence, unspecified, uncomplicated
CPT/HCPCS: 36415; 71046; 74170; 74177; 76700; 80053; 80061; 80320; 81003; 81025; 82150; 82607; 83615; 83690; 84436; 84480; 84703; 85025; 85027; 96361; 96372; 96374; 99284; G0378; J1650; J7040; J7120; Q9966; Q9967